=== PATIENT | female | born 1975 | race Caucasian/White ===

== ENCOUNTER 2020-08-19 17:33 | Outpatient (REF) | payer SELFPAY ==
--- NOTE | 2020-08-19 | MM_ITS ---
EXAMINATION: MM SCREENING DIGITAL BREAST TOMOSYNTHESIS, BILATERAL CLINICAL INFORMATION: Screening. Asymptomatic. No prior breast imaging. Age 45. No family history breast cancer. The lifetime risk of breast cancer based on the Tyrer-Cuzick Model is 8%. COMPARISON: None (current study represents initial baseline exam). TECHNIQUE: Digital breast tomosynthesis is performed in both the craniocaudal and mediolateral oblique views along with computer-aided detection (CAD). Synthesized 2D images are generated from the tomosynthesis. Additional right MLO view is provided. FINDINGS: The breasts are almost entirely fatty (ACR BI-RADS breast composition Category a). There is no mass or architectural abnormality. Background stromal densities are unremarkable. No abnormal calcifications. The axilla and skin contours are unremarkable. IMPRESSION: No mammographic evidence of malignancy. ASSESSMENT: BI-RADS 1: Negative RECOMMENDATION: Routine annual mammography screening. This patient's information was entered into a reminder system with a target due date for their next mammogram.
== END 2020-08-19 17:34 | disposition home or self-care (01) ==
LOC: HO.MAMMO 17:33
PROVIDERS: Visit Provider Internal Medicine
DX: Z12.31 Encounter for screening mammogram for malignant neoplasm of breast (principal)
CPT/HCPCS: 77063; 77067

== ENCOUNTER 2021-12-11 14:13 | Outpatient (REF) | payer OTHER, SELFPAY ==
--- NOTE | ~2021-12-11 | XR_ITS ---
EXAMINATION: XR THORACIC SPINE CLINICAL INFORMATION: Dorsalgia COMPARISON: None TECHNIQUE: 3 views of the thoracic spine were obtained. FINDINGS: There is normal thoracic kyphosis. The vertebral heights, alignment and disc heights are normal. No visible acute fracture, dislocation or subluxation seen. The paravertebral soft tissues are normal. There is mild spondylosis dorsal spine. No lytic process. XR/XR thoracic spine 3V IMPRESSION: Mild spondylosis dorsal spine. No visible acute fracture or dislocation seen.
== END 2021-12-11 14:14 | disposition home or self-care (01) ==
LOC: HO.HMGCX 14:13
PROVIDERS: PCP Internal Medicine; Visit Provider Internal Medicine
DX: M54.9 Dorsalgia, unspecified (principal)
CPT/HCPCS: 72072

== ENCOUNTER 2022-01-05 12:38 | Outpatient (REF) | payer OTHER, SELFPAY ==
[2022-01-08 09:01] LABS: HPV mRNA E6/E7 Not Detected (Not Detected)
== END 2022-01-05 12:39 | disposition home or self-care (01) ==
LOC: HO.LAB 12:38
PROVIDERS: Visit Provider Internal Medicine
DX: Z12.4 Encounter for screening for malignant neoplasm of cervix (principal); Z11.51 Encounter for screening for human papillomavirus (HPV)
CPT/HCPCS: 87624; 88142

== ENCOUNTER 2022-01-24 09:41 | Outpatient (REF) | payer OTHER, SELFPAY ==
--- NOTE | ~2022-01-24 | MM_ITS ---
EXAMINATION: MM SCREENING DIGITAL BREAST TOMOSYNTHESIS, BILATERAL CLINICAL INFORMATION: Screening. Asymptomatic. The lifetime risk of breast cancer based on the Tyrer-Cuzick Model is 7%. COMPARISON: Mammography: 08/19/2020 (baseline) TECHNIQUE: Digital breast tomosynthesis is performed in both the craniocaudal and mediolateral oblique views along with computer-aided detection (CAD). Synthesized 2D images are generated from the tomosynthesis. Additional bilateral MLO views are provided. FINDINGS: The breasts are almost entirely fatty (ACR BI-RADS breast composition Category a). There are no significant masses, abnormal calcifications, or other abnormalities. Background stromal and fibroglandular densities are similar to prior baseline exam. The axilla and skin contours are unremarkable. There are no significant changes. MM/MM tomosynthesis screening BI IMPRESSION: No mammographic evidence of malignancy. ASSESSMENT: BI-RADS 1: Negative RECOMMENDATION: Routine annual mammography screening. This patient's information was entered into a reminder system with a target due date for their next mammogram.
== END 2022-01-24 09:42 | disposition home or self-care (01) ==
LOC: HO.MAMMO 09:41
PROVIDERS: Visit Provider Internal Medicine
DX: Z12.31 Encounter for screening mammogram for malignant neoplasm of breast (principal)
CPT/HCPCS: 77063; 77067

== ENCOUNTER 2023-01-21 12:57 | Outpatient (REF) | payer OTHER, SELFPAY ==
[2023-01-21 13:48] LABS: MANUAL DIFF FLAG NO
[2023-01-21 14:05] LABS: Basophils Percent Auto 0.4 % (0-2); Eosinophils Absolute Auto 0.1 X10*3/uL (0.0-0.4); Eosinophils Percent Auto 1.3 % (0-4); Hematocrit 41.1 % (37.0-47.0); Hemoglobin 12.6 g/dl (12.0-16.0); Imm Gran Abs Auto 0.07 X10*3/uL (0.00-0.03); Imm Gran Pct Auto 0.6 % (0.0-0.4); Lymphocytes Absolute Auto 2.9 X10*3/uL (1.2-4.9); Lymphocytes Percent Auto 26.5 % (20-40); Mean Corpuscular HGB Conc 30.7 g/dl (31.0-35.0); Mean Corpuscular Volume 84.7 fL (80.0-98.0); Mean Platelet Volume 8.6 fL (9.4-12.3); Monocytes Absolute Auto 0.8 X10*3/uL (0.1-1.2); Neutrophils Percent Auto 64.2 % (45-73); Platelet Count 401 X10*3/uL (160-400); Red Blood Count 4.85 X10*6/uL (4.20-5.50); Red Cell Distribution Width 14.6 % (11.0-16.0)
[2023-01-21 14:47] LABS: Alanine Aminotransferase 15 U/L (0-31); Albumin Level 3.7 g/dL (3.5-5.0); Alkaline Phosphatase 96 U/L (39-117); Anion Gap 13 (12-20); Aspartate Amino Transferase 12 U/L (5-31); Bilirubin Total 0.7 mg/dL (0.0-1.0); Blood Urea Nitrogen 15 mg/dL (9-16); Calcium 9.1 mg/dL (8.4-10.2); Carbon Dioxide 29 mmol/L (22-29); Chloride 103 mmol/L (96-108); Cholesterol 226 mg/dL; Estimated Glomerular Filt Rate > 60; Glucose Fasting 103 mg/dL (60-99); HDL Cholesterol 52 mg/dL; LDL Cholesterol Calculated 141 mg/dl; Potassium 4.8 mmol/L (3.3-5.1); Sodium 140 mmol/L (135-145); Total Protein 6.9 g/dL (6.5-8.0); Triglycerides 167 mg/dL
[2023-01-21 14:49] LABS: TSH reflex Free T4 1.01 uIU/mL (0.32-4.0)
== END 2023-01-21 12:58 | disposition home or self-care (01) ==
LOC: HO.HMGCLDS 12:57
PROVIDERS: PCP Internal Medicine; Visit Provider Internal Medicine
DX: Z00.00 Encounter for general adult medical examination without abnormal findings (principal); R53.83 Other fatigue
CPT/HCPCS: 36415; 80053; 80061; 84443; 85025

== ENCOUNTER 2023-03-03 07:45 | Outpatient (REF) | payer OTHER, SELFPAY | END 2023-03-03 07:46 | disposition home or self-care (01) | LOC: HO.SH 07:45 | PROVIDERS: Visit Provider Internal Medicine | DX: Z01.118 Encounter for examination of ears and hearing with other abnormal findings (principal); H90.42 Sensorineural hearing loss, unilateral, left ear, with unrestricted hearing on the contralateral side | CPT/HCPCS: 92550; 92557; 92588; 92700 ==

== ENCOUNTER 2023-07-06 09:23 | Outpatient (AMB) | payer OTHER, SELFPAY ==
[2023-07-06 09:29] VITALS: BP 118/90; PULSE 95; BMI 46.3
--- NOTE | 2023-07-06 09:29 | A.OFFVIS_ITS ---
Intake Vital Signs 07/06/23 09:29 Height 5 ft 1 in Weight 245 lb 2.464 oz BMI 46.3 BP 118/90 H Blood Pressure Location Lt brachial Position Sitting Pulse 95 Intake Visit Reasons: NPV/Cichon/Chest pain Intake Note: NPV Assembler Skylights Required: No Accompanied by: Self / Same As Patient Allergies penicillin V Allergy (Unknown, Verified 07/06/23 09:31) hives migraine morphine Allergy (Verified 07/06/23 09:31) tremors baclofen Adverse Reaction (Verified 07/06/23 09:31) heart flaterring Medication List - Last Reconciled 07/06/23 by Federico Lopez MD propranolol 40 mg PO BID tirzepatide 7.5 mg subcut QWEEK venlafaxine ER 37.5 mg PO DAILY HPI HPI Comments History of Present Illness Details Carly is here for consultation regarding chest pains. She states for the last few months she has been having off and on chest pains in the left side. This sometimes feels like burning and sometimes feels like sharp pains. Just about the left breast area and can go to the back. Nothing clearly provoke it of and can happen with and without exertion. No known cardiac issues like coronary disease myocardial infarction. She is on the overweight side. Main concern is that multiple members in the family have had cardiac issues around this age and hence she wants to get herself evaluated in this regard. [facility] Medical History Annual physical exam Back pain Bipolar disorder with depression Migraine headache Normal Pap smear Obesity Overweight Surgical History Carpal tunnel syndrome Hx of cholecystectomy Family History Father Mental health disorder Substance use disorder Mother Mental health disorder Substance use disorder Uterine cancer Family/Other Diabetes mellitus Heart problem Paternal Aunt Leukemia Social History Housing: House Patient Tobacco Use Status: Never used Tobacco e-Cigarette/Vaping Use: Never Used Current occupational status: employed Cognitive needs: No Hearing needs: No Vision needs: No Review of Systems Const Denies chills, Denies daytime sleepiness, Denies fatigue, Denies fever(s), Denies frequent falls, Denies night sweats, Denies snoring, Denies weakness, Denies weight gain and Denies weight loss Eyes Denies loss of vision ENT Denies dizziness and Denies hearing loss Card Denies chest pain, Denies chest pain with activity, Denies syncope, Denies rapid heart rate, Denies edema, Denies claudication, Denies leg edema, Denies lightheadedness, Denies palpitations, Denies dyspnea, Denies dyspnea on exertion and Denies orthopnea Resp Denies cough, Denies excessive phlegm production, Denies dyspnea, Denies dyspnea on exertion, Denies snoring and Denies wheezing GI Denies abdominal pain, Denies hematochezia, Denies change in bowel habits, Denies change in stool character, Denies heartburn, Denies nausea and Denies vomiting Denies hematuria, Denies urinary frequency and Denies dysuria Musc Denies arthralgias, Denies muscle weakness, Denies numbness and Denies tingling Skin/Breast Denies nail changes and Denies rash Neuro Denies Abnormal speech present, Denies dizziness, Denies syncope, Denies frequent falls, Denies loss of vision, Denies memory loss, Denies numbness, Denies tingling and Denies weakness Psych Denies depression and Denies memory loss Endo Denies fatigue and Denies palpitations Aller/Immun Denies wheezing Physical Exam Vital Signs: Last Vital Signs Pulse 95 07/06/23 09:29 BP 118/90 H 07/06/23 09:29 BMI result Body Mass Index 46.3 Const General: comfortable and no acute distress Orientation/consciousness: patient oriented x3 HEENT Other: Unremarkable Head: Yes normal to inspection Neck Neck: Yes normal visual inspection Chest Chest palpation & inspection: normal inspection of the chest Resp Auscultation: clear to auscultation bilaterally Cardio Palpation: normal PMI Heart sounds: S1 normal heart sound present, S2 normal heart sound present, no gallops, no murmurs and no rubs GI Palpation (GI): Soft to palpation Back/Spine/Pelvis Other: unremarkable Skin General skin exam: no rashes or lesions noted Neuro General: patient oriented x3 Speech: No Abnormal speech present Extrem General: Yes normal to inspection Psych Mental Status: mental status grossly normal Assessment & Plan Assessment & Plan (1) Precordial chest pain: Code(s): R07.2 - Precordial pain Plan In the recent EKG, underlying rhythm is sinus at 78/Min; cannot exclude old inferior or anterior infarct but more likely from her body habitus. Symptoms are atypical but she does have a strong family history with multiple family members with cardiac issues at relatively young age. Hence we will pursue further workup with an echocardiogram and coronary CTA. Her weight also predisposes her to cardiac issues. Plan discussed with patient and she is agreeable. While workup is being completed, advised to avoid any strenuous physical activity. Orders: Orders CA echo transthoracic complete Today I25.10 - Atherosclerotic heart disease of [place] coronary artery without angina pectoris, R07.2 - Precordial pain CT Cardiac Coronary Angio Today I25.10 - Atherosclerotic heart disease of [place] coronary artery without angina pectoris, R07.2 - Precordial pain Coding Level of Care Code New Pt Level 4 (50205) Diagnoses Precordial chest pain R07.2
== END 2023-07-06 09:54 | disposition home or self-care (01) ==
PROVIDERS: PCP Internal Medicine; Referring Provider Internal Medicine; Visit Provider Internal Medicine
DX: R07.2 Precordial pain (principal)
CPT/HCPCS: 99204

== ENCOUNTER → 2023-07-06 09:23 | Outpatient (BNVA) | payer OTHER, SELFPAY | PROVIDERS: PCP Internal Medicine; Referring Provider Internal Medicine; Visit Provider Internal Medicine ==

== ENCOUNTER 2024-03-04 06:58 | Outpatient (REF) | payer OTHER, SELFPAY ==
[2024-03-04 11:10] LABS: MANUAL DIFF FLAG NO
[2024-03-04 11:16] LABS: Basophils Absolute Auto 0.1 X10*3/uL (0.0-0.2); Basophils Percent Auto 0.6 % (0-2); Eosinophils Absolute Auto 0.2 X10*3/uL (0.0-0.4); Eosinophils Percent Auto 2.4 % (0-4); Hematocrit 41.8 % (37.0-47.0); Hemoglobin 12.8 g/dl (12.0-16.0); Imm Gran Abs Auto 0.05 X10*3/uL (0.00-0.03); Imm Gran Pct Auto 0.6 % (0.0-0.4); Lymphocytes Absolute Auto 2.7 X10*3/uL (1.2-4.9); Lymphocytes Percent Auto 31.9 % (20-40); Mean Corpuscular HGB Conc 30.6 g/dl (31.0-35.0); Mean Corpuscular Hemoglobin 26.5 pg (27.0-33.0); Mean Corpuscular Volume 86.5 fL (80.0-98.0); Mean Platelet Volume 8.9 fL (9.4-12.3); Monocytes Absolute Auto 0.7 X10*3/uL (0.1-1.2); Monocytes Percent Auto 8.2 % (2-11); Neutrophils Absolute Auto 4.8 x10*3/uL (2.0-8.3); Neutrophils Percent Auto 56.3 % (45-73); Platelet Count 387 X10*3/uL (160-400); Red Blood Count 4.83 X10*6/uL (4.20-5.50); Red Cell Distribution Width 14.4 % (11.0-16.0); White Blood Count 8.6 X10*3/uL (4.8-10.8)
[2024-03-04 12:14] LABS: Alanine Aminotransferase 34 U/L (0-31); Albumin Level 3.9 g/dL (3.5-5.0); Alkaline Phosphatase 96 U/L (39-117); Anion Gap 12 (12-20); Aspartate Amino Transferase 21 U/L (5-31); Bilirubin Total 0.5 mg/dL (0.0-1.0); Blood Urea Nitrogen 16 mg/dL (9-16); Carbon Dioxide 28 mmol/L (22-29); Chloride 106 mmol/L (96-108); Cholesterol 214 mg/dL (<200); Estimated Glomerular Filt Rate > 60; Glucose Fasting 94 mg/dL (60-99); HDL Cholesterol 55 mg/dL (>40); LDL Cholesterol Calculated 132 mg/dL (<100); Potassium 4.3 mmol/L (3.3-5.1); Sodium 142 mmol/L (135-145); Total Protein 7.4 g/dL (6.5-8.0); Triglycerides 139 mg/dL (<150)
[2024-03-04 12:29] LABS: TSH reflex Free T4 1.83 uIU/mL (0.32-4.0)
== END 2024-03-04 06:59 | disposition home or self-care (01) ==
LOC: HO.HMGCLDS 06:58
PROVIDERS: PCP Internal Medicine; Visit Provider Internal Medicine
DX: Z00.00 Encounter for general adult medical examination without abnormal findings (principal); E66.9 Obesity, unspecified; E78.5 Hyperlipidemia, unspecified; F31.9 Bipolar disorder, unspecified
CPT/HCPCS: 36415; 80053; 80061; 84443; 85025

== ENCOUNTER 2024-03-06 10:23 | Outpatient (AMB) | payer OTHER, SELFPAY ==
[2024-03-06 10:26] VITALS: BP 112/78; PULSE 72; O2SAT 98; BMI 43.1
--- NOTE | 2024-03-06 10:26 | MHC.PC.OV ---
Vital Signs 03/06/24 10:26 Height 5 ft 1 in Weight 228 lb BMI 43.1 BP 112/78 Blood Pressure Location Rt brachial Position Sitting Pulse 72 Pulse Source Pulse Oximeter Pulse Oximetry (%) 98 Oxygen Delivery Method Room Air Intake Visit Reasons: Annual PE Intake Note: Pt is here today for PE. Allergies penicillin V Allergy (Unknown, Verified 03/06/24 10:45) hives migraine morphine Allergy (Verified 03/06/24 10:45) tremors baclofen Adverse Reaction (Verified 03/06/24 10:45) heart flaterring Medication List - Last Reconciled 03/06/24 by Isabel Mcelroy MD propranolol 40 mg PO BID venlafaxine ER 37.5 mg PO DAILY Tobacco use date assessed: 03/06/24 Dental Screening Dental Screen Date: 03/06/24 Did you have a dental visit in the last 12 months?: Yes Did you have a dental problem in the last 6 months where you did not have access to dental care?: No Was dental information given to patient?: Patient has dentist HPI Annual PE HPI Details Pt presents for PE. PFSH Medical History Back pain Annual physical exam Obesity Normal Pap smear Overweight Bipolar disorder with depression Migraine headache Surgical History Carpal tunnel syndrome Hx of cholecystectomy Family History Father Mental health disorder Substance use disorder Mother Mental health disorder Substance use disorder Uterine cancer Family/Other Diabetes mellitus Heart problem Paternal Aunt Leukemia Social History Housing: House Patient Tobacco Use Status: Never used Tobacco e-Cigarette/Vaping Use: Never Used service: No Current occupational status: employed Cognitive needs: No Hearing needs: No Vision needs: No Questionnaire PHQ-9 Over the last 2 weeks, how often have you been bothered by any of the following problems? 1. Little interest or pleasure in doing things: several days 2. Feeling down, depressed, or hopeless: several days 3. Trouble falling or staying asleep, or sleeping too much: several days 4. Feeling tired or having little energy: several days 5. Poor appetite or overeating: not at all 6. Feeling bad about yourself - or that you are a failure or have let yourself or your family down: not at all 7. Trouble concentrating on things, such as reading the newspaper or watching television: several days 8. Moving or speaking so slowly that other people could have noticed. Or the opposite - being so fidgety or restless that you have been moving around a lot more than usual: not at all 9. Thoughts that you would be better off or of hurting yourself in some way: not at all Total score: 5 Depression Screening Interpretation: Negative Depression Screening Done: Yes Source: Developed by Drs. Tyler Aranda, Herlinda Mcclelland, Adarsh Be and colleagues, with an educational aury from [employer]. Thrive Questionnaire Date Thrive assessed: 03/05/23 I am a: Patient What is your living situation today?: I have a steady place to live Within the past 12 months, did the food you bought not last and you didn't have the money to get more?: I choose not to answer this question Within the past 12 months, did you worry whether your food would run out before you got money to buy more?: Sometimes True Do you have trouble paying for medicines?: No Do you have trouble getting transportation to medical appointments?: No Do you have trouble paying your heating and electricity bill?: Yes Do you have trouble taking care of your child, family member or friend?: No Do you have trouble with day-to-day activities such as bathing, preparing meals, shopping, managing finances, etc.?: No Are you currently unemployed and looking for a job?: No Are you interested in more education?: No Please select the resources that you would like help with: Utilities THRIVE Score: 2 AUDIT C Alcohol Use Questionnaire (AUDIT-C) 1. How often do you have a drink containing alcohol?: Monthly or less 2. How many drinks containing alcohol do you have on a typical day when you are drinking?: 1 or 2 3. How often do you have six or more drinks on one occasion?: Never Total Score: 1 JOSUE-7 AMB Questionnaire JOSUE-7 Date JOSUE - 7 assessed: 03/05/23 Feeling nervous, anxious, or on edge: 0 = Not at all Not being able to stop or control worryin = Not at all Worrying too much about different things: 0 = Not at all Trouble relaxin = Not at all Being so restless that it is hard to sit still: 0 = Not at all Becoming easily annoyed or irritable: 1 = Several days Feeling afraid as if something awful might happen: 0 = Not at all Total JOSUE-7 score (0-4 normal; 5-9 mild; 10-14 moderate; 15-21 severe): 1 Source: Developed by Drs. Tyler Aranda, Herlinda Mcclelland, Adarsh Be and colleagues, with an educational aury from [employer]. Review of Systems Const All systems reviewed & are unremarkable except as noted in HPI and below Reports no additional complaints Eyes Reports no additional complaints ENT Reports no additional complaints Card Reports no additional complaints Resp Reports no additional complaints GI Reports no additional complaints Reports no additional complaints Physical exam (Primary Care) Vital Signs: Last Vital Signs Pulse 72 03/06/24 10:26 BP 112/78 03/06/24 10:26 Pulse Ox 98 03/06/24 10:26 Oxygen Delivery Method Room Air 03/06/24 10:26 BMI result Body Mass Index 43.1 Tobacco/Smoking Status: Tobacco use Status Tobacco use date assessed 03/06/24 03/06/24 10:48 Patient Tobacco Use Status Never used Tobacco 03/06/24 10:48 e-Cigarette/Vaping Use Never Used 03/06/24 10:26 PHQ-9: PHQ-9 Score PHQ-9: Total score 5 03/06/24 10:48 Depression Screening Interpretation: Negative Thrive Assessment: Date of Thrive Assessment Date Thrive assessed 03/05/23 03/06/24 10:26 Const General: no acute distress HENMT Head: Yes normal to inspection Ears: hearing grossly normal bilaterally Face and sinus: Yes normal facial exam Throat: Yes posterior oropharynx normal Eyes General: appearance normal, both eyes and all related structures Neck Neck: Yes no lymphadenopathy and Yes supple Resp Effort & Inspection: normal respiratory effort Auscultation: clear to auscultation bilaterally Cardio Rhythm: regular rhythm Heart sounds: S1 normal heart sound present and S2 normal heart sound present GI Inspection: Yes normal to inspection Palpation (GI): Soft to palpation Percussion: Yes normal to percussion Auscultation: normal bowel sounds Assessment and Plan Assessment & Plan (1) Bipolar disorder with depression: Comment: follows up with therapist and psychiatrist Code(s): F31.9 - Bipolar disorder, unspecified Plan: cont Effexor (2) Annual physical exam: Code(s): Z00.00 - Encounter for general adult medical examination without abnormal findings Plan: well balanced diet, regular exercise, weight loss discussed, refer to GI for colonoscopy, patient will schedule an appointment for mammogram and assistant to the ceo (3) Obesity: Code(s): E66.9 - Obesity, unspecified Plan: weight loss discussed (4) Normal Pap smear: Comment: 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 Panel Fast 1 Year E78.5 - Hyperlipidemia, unspecified, Z00.00 - Encounter for general adult medical examination without abnormal findings Lipid Panel 1 Year E78.5 - Hyperlipidemia, unspecified, Z00.00 - Encounter for general adult medical examination without abnormal findings Complete Blood Count Auto Diff 1 Year E78.5 - Hyperlipidemia, unspecified, Z00.00 - Encounter for general adult medical examination without abnormal findings Referrals Gastroenterology Referral Z00.00 - Encounter for general adult medical examination without abnormal findings Coding Level of Care Code Est Pt Prev Care 40-64y(34863) Diagnoses Bipolar disorder with depression F31.9 Annual physical exam Z00.00 Obesity E66.9 Normal Pap smear Z12.4 Right shoulder pain M25.511 Hyperlipidemia E78.5
== END 2024-03-06 11:15 | disposition home or self-care (01) ==
PROVIDERS: Visit Provider Internal Medicine
DX: Z00.00 Encounter for general adult medical examination without abnormal findings (principal); F31.9 Bipolar disorder, unspecified; Z68.41 Body mass index [BMI] 40.0-44.9, adult; E66.9 Obesity, unspecified; M25.511 Pain in right shoulder; E78.5 Hyperlipidemia, unspecified
CPT/HCPCS: 99396

== ENCOUNTER 2024-07-14 11:55 | Outpatient (AMB) | payer OTHER, SELFPAY ==
[2024-07-14 12:04] VITALS: BP 118/74; PULSE 93; O2SAT 95; BMI 45.7
--- NOTE | 2024-07-14 12:04 | A.OFFPC_ITS ---
Vital Signs 07/14/24 12:04 Height 5 ft 1 in Weight 242 lb BMI 45.7 BP 118/74 Blood Pressure Location Lt brachial Position Sitting Pulse 93 Pulse Source Pulse Oximeter Pulse Oximetry (%) 95 Oxygen Delivery Method Room Air Intake Visit Reasons: Weight loss struggle Intake Note: Pt is here today for a follow up visit to discuss weight loss issue. Allergies penicillin V Allergy (Unknown, Verified 07/14/24 12:08) hives migraine morphine Allergy (Verified 07/14/24 12:08) tremors baclofen Adverse Reaction (Verified 07/14/24 12:08) heart flaterring Medication List - Last Reconciled 07/14/24 by Isabel Mcelroy MD propranolol 40 mg (1/2 x 80 mg) PO BID sumatriptan succinate take 1 tab at onset of headache; if no relief, may repeat 1 tab after at least 2 hrs; max = 2 tabs/24 hrs PO venlafaxine ER 37.5 mg PO DAILY Tobacco use date assessed: 07/14/24 Dental Screening Dental Screen Date: 03/06/24 HPI Weight loss struggle HPI Details Patient presents complaining of gaining weight despite of decreasing caloric intake and exercising 5 times a week. She used to take Mounjaro prescribed by weight management program which went out of business. Patient was able to lose 30 lb of Mounjaro. [facility] Medical History Back pain Annual physical exam Obesity Normal Pap smear Overweight Bipolar disorder with depression Migraine headache Surgical History Carpal tunnel syndrome Hx of cholecystectomy Family History Father Mental health disorder Substance use disorder Mother Mental health disorder Substance use disorder Uterine cancer Family/Other Diabetes mellitus Heart problem Paternal Aunt Leukemia Social History Housing: House Patient Tobacco Use Status: Never used Tobacco e-Cigarette/Vaping Use: Never Used service: No Current occupational status: employed Cognitive needs: No Hearing needs: No Vision needs: No Questionnaire Thrive Questionnaire Date Thrive assessed: 07/07/24 I am a: Patient What is your living situation today?: I have a steady place to live Within the past 12 months, did the food you bought not last and you didn't have the money to get more?: Never true Within the past 12 months, did you worry whether your food would run out before you got money to buy more?: Never true Do you have trouble paying for medicines?: Yes Do you have trouble getting transportation to medical appointments?: No Do you have trouble paying your heating and electricity bill?: Yes Do you have trouble taking care of your child, family member or friend?: No Do you have trouble with day-to-day activities such as bathing, preparing meals, shopping, managing finances, etc.?: No Are you currently unemployed and looking for a job?: No Are you interested in more education?: No Currently or been in a relationship where the following occur: No concerns reported THRIVE Score: 1 AUDIT C Alcohol Use Questionnaire (AUDIT-C) 1. How often do you have a drink containing alcohol?: Monthly or less 2. How many drinks containing alcohol do you have on a typical day when you are drinking?: 1 or 2 3. How often do you have six or more drinks on one occasion?: Never Total Score: 1 JOSUE-7 AMB Questionnaire JOSUE-7 Date JOSUE - 7 assessed: 03/05/23 Feeling nervous, anxious, or on edge: 0 = Not at all Not being able to stop or control worryin = Not at all Worrying too much about different things: 0 = Not at all Trouble relaxin = Not at all Being so restless that it is hard to sit still: 0 = Not at all Becoming easily annoyed or irritable: 1 = Several days Feeling afraid as if something awful might happen: 0 = Not at all Total JOSUE-7 score (0-4 normal; 5-9 mild; 10-14 moderate; 15-21 severe): 1 Source: Developed by Drs. Tyler Aranda, Herlinda Mcclelland, Adarsh Be and colleagues, with an educational aury from [employer]. Review of Systems Const All systems reviewed & are unremarkable except as noted in HPI and below Card Reports no additional complaints Resp Reports no additional complaints GI Reports no additional complaints Physical exam (Primary Care) Vital Signs: Last Vital Signs Pulse 93 07/14/24 12:04 BP 118/74 07/14/24 12:04 Pulse Ox 95 07/14/24 12:04 Oxygen Delivery Method Room Air 07/14/24 12:04 BMI result Body Mass Index 45.7 Tobacco/Smoking Status: Tobacco use Status Tobacco use date assessed 07/14/24 07/14/24 12:09 Patient Tobacco Use Status Never used Tobacco 07/14/24 12:09 e-Cigarette/Vaping Use Never Used 07/14/24 12:09 Thrive Assessment: Date of Thrive Assessment Date Thrive assessed 07/07/24 07/14/24 12:09 Currently or been in a relationship where the following occur: No concerns reported Const General: no acute distress HENMT Head: Yes normal to inspection General nose exam: Normal external nose present Throat: Yes posterior oropharynx normal Eyes General: appearance normal, both eyes and all related structures Neck Neck: Yes supple Resp Effort & Inspection: normal respiratory effort Auscultation: clear to auscultation bilaterally Cardio Rhythm: regular rhythm Heart sounds: S1 normal heart sound present and S2 normal heart sound present Assessment and Plan Assessment & Plan (1) Obesity: Comment: BMI 45.7 Code(s): E66.9 - Obesity, unspecified Plan: CONTINUE DECREASE CALORIC INTAKE WITH THE PHYSICAL ACTIVITY. Zepbound 2.5 mg for the 1st month then increase to 5 mg weekly will be started. Follow-up in 2 months to monitor weight loss Medications: New Zepbound (tirzepatide (weight loss)) 2.5 mg (0.5 mL) subcut QWEEK 2 mL 2RF NS Coding Level of Care Code Est Pt Level 3 (39780) Diagnoses Obesity E66.9
== END 2024-07-14 12:46 | disposition home or self-care (01) ==
LOC: HO.HMGC 11:55
PROVIDERS: PCP Internal Medicine; Visit Provider Internal Medicine
DX: E66.01 Morbid (severe) obesity due to excess calories (principal); Z68.42 Body mass index [BMI] 45.0-49.9, adult
CPT/HCPCS: 99213

== ENCOUNTER 2025-04-06 08:32 | Outpatient (REF) | payer OTHER, SELFPAY ==
[2025-04-06 10:12] LABS: MANUAL DIFF FLAG NO
[2025-04-06 10:26] LABS: Basophils Absolute Auto 0.1 X10*3/uL (0.0-0.2); Basophils Percent Auto 0.6 % (0-2); Eosinophils Absolute Auto 0.2 X10*3/uL (0.0-0.4); Eosinophils Percent Auto 1.9 % (0-4); Hematocrit 39.5 % (37.0-47.0); Hemoglobin 12.7 g/dl (12.0-16.0); Imm Gran Abs Auto 0.06 X10*3/uL (0.00-0.03); Imm Gran Pct Auto 0.7 % (0.0-0.4); Lymphocytes Absolute Auto 2.2 X10*3/uL (1.2-4.9); Lymphocytes Percent Auto 25.8 % (20-40); Mean Corpuscular HGB Conc 32.2 g/dl (31.0-35.0); Mean Corpuscular Hemoglobin 27.7 pg (27.0-33.0); Mean Corpuscular Volume 86.2 fL (80.0-98.0); Mean Platelet Volume 8.6 fL (9.4-12.3); Monocytes Absolute Auto 0.7 X10*3/uL (0.1-1.2); Monocytes Percent Auto 8.2 % (2-11); Neutrophils Absolute Auto 5.3 x10*3/uL (2.0-8.3); Neutrophils Percent Auto 62.8 % (45-73); Platelet Count 299 X10*3/uL (160-400); Red Blood Count 4.58 X10*6/uL (4.20-5.50); Red Cell Distribution Width 13.6 % (11.0-16.0); White Blood Count 8.5 X10*3/uL (4.8-10.8)
[2025-04-06 13:00] LABS: TSH reflex Free T4 2.08 uIU/mL (0.32-4.0)
[2025-04-06 13:02] LABS: Anion Gap 10 (12-20)
[2025-04-06 13:06] LABS: Alanine Aminotransferase 20 U/L (0-31); Alkaline Phosphatase 91 U/L (39-117); Aspartate Amino Transferase 20 U/L (5-31); Bilirubin Total 0.6 mg/dL (0.0-1.0); Blood Urea Nitrogen 14 mg/dL (9-16); Calcium 9.2 mg/dL (8.4-10.2); Carbon Dioxide 30 mmol/L (22-29); Chloride 106 mmol/L (96-108); Cholesterol 201 mg/dL (<200); Estimated Glomerular Filt Rate > 60; Glucose Fasting 99 mg/dL (60-99); HDL Cholesterol 53 mg/dL (>40); LDL Cholesterol Calculated 116 mg/dL (<100); Potassium 4.5 mmol/L (3.3-5.1); Sodium 141 mmol/L (135-145); Total Protein 7.2 g/dL (6.5-8.0); Triglycerides 162 mg/dL (<150)
== END 2025-04-06 08:33 | disposition home or self-care (01) ==
LOC: HO.HMGCLDS 08:32
PROVIDERS: PCP Internal Medicine; Visit Provider Internal Medicine
DX: Z00.00 Encounter for general adult medical examination without abnormal findings (principal); E78.5 Hyperlipidemia, unspecified; F31.9 Bipolar disorder, unspecified; G43.909 Migraine, unspecified, not intractable, without status migrainosus; E66.9 Obesity, unspecified; Z68.42 Body mass index [BMI] 45.0-49.9, adult
CPT/HCPCS: 36415; 80053; 80061; 84443; 85025; 96127

== ENCOUNTER 2025-04-06 08:32 | Outpatient (AMB) | payer OTHER, SELFPAY ==
--- NOTE | 2025-04-06 08:34 | MHC.PC.OV ---
Vital Signs 04/06/25 08:35 Height 5 ft 1 in Weight 255 lb BMI 48.2 BP 120/82 Blood Pressure Location Lt brachial Position Sitting Respiration 18 Pulse 95 Pulse Source Pulse Oximeter Temp 98.0 F Temp Source Oral Pulse Oximetry (%) 97 Oxygen Delivery Method Room Air Intake Visit Reasons: Annual PE Intake Note: Pt is here today for PE. Allergies penicillin V Allergy (Unknown, Verified 04/06/25 08:36) hives migraine morphine Allergy (Verified 04/06/25 08:36) tremors baclofen Adverse Reaction (Verified 04/06/25 08:36) heart flaterring Medication List - Last Reconciled 04/06/25 by Isabel Mcelroy MD propranolol 40 mg (1/2 x 80 mg) PO BID sumatriptan succinate take 1 tab at onset of headache; if no relief, may repeat 1 tab after at least 2 hrs; max = 2 tabs/24 hrs PO venlafaxine ER 37.5 mg PO DAILY Tobacco use date assessed: 04/06/25 Dental Screening Dental Screen Date: 04/06/25 Did you have a dental visit in the last 12 months?: Yes Did you have a dental problem in the last 6 months where you did not have access to dental care?: No Was dental information given to patient?: Patient has dentist HPI Annual PE HPI Details Pt presents for PE. Patient has been decreasing caloric intake increasing physical activity for 9 months trying to lose weight unsuccessfully. She is interested in trying GLP 1 agonist to facilitate weight loss PFSH Medical History Back pain Annual physical exam Obesity Normal Pap smear Overweight Bipolar disorder with depression Migraine headache Surgical History Carpal tunnel syndrome Hx of cholecystectomy Family History Father Mental health disorder Substance use disorder Mother Mental health disorder Substance use disorder Uterine cancer Family/Other Diabetes mellitus Heart problem Paternal Aunt Leukemia Social History Housing: House Patient Tobacco Use Status: Never used Tobacco e-Cigarette/Vaping Use: Never Used service: No Current occupational status: employed Cognitive needs: No Hearing needs: No Vision needs: No Questionnaire PHQ-9 Over the last 2 weeks, how often have you been bothered by any of the following problems? 1. Little interest or pleasure in doing things: not at all 2. Feeling down, depressed, or hopeless: not at all 3. Trouble falling or staying asleep, or sleeping too much: not at all 4. Feeling tired or having little energy: several days 5. Poor appetite or overeating: nearly every day 6. Feeling bad about yourself - or that you are a failure or have let yourself or your family down: not at all 7. Trouble concentrating on things, such as reading the newspaper or watching television: several days 8. Moving or speaking so slowly that other people could have noticed. Or the opposite - being so fidgety or restless that you have been moving around a lot more than usual: not at all 9. Thoughts that you would be better off or of hurting yourself in some way: not at all Total score: 5 Depression Screening Interpretation: Negative Depression Screening Done: Yes 22034 - PHQ-9 Billing: Yes Source: Developed by Drs. Tyler Aranda, Herlinda Mcclelland, Adarsh Be and colleagues, with an educational aury from [employer] [facility]. Thrive Questionnaire Date Thrive assessed: 04/06/25 I am a: Patient What is your living situation today?: I have a steady place to live Within the past 12 months, did the food you bought not last and you didn't have the money to get more?: Never true Within the past 12 months, did you worry whether your food would run out before you got money to buy more?: Never true Do you have trouble paying for medicines?: Yes Do you have trouble getting transportation to medical appointments?: No Do you have trouble paying your heating and electricity bill?: Yes Do you have trouble taking care of your child, family member or friend?: No Do you have trouble with day-to-day activities such as bathing, preparing meals, shopping, managing finances, etc.?: No Are you currently unemployed and looking for a job?: No Are you interested in more education?: No Please select the resources that you would like help with: Paying for medicine and Utilities Currently or been in a relationship where the following occur: No concerns reported THRIVE Score: 1 AUDIT C Alcohol Use Questionnaire (AUDIT-C) 1. How often do you have a drink containing alcohol?: Monthly or less 2. How many drinks containing alcohol do you have on a typical day when you are drinking?: 1 or 2 3. How often do you have six or more drinks on one occasion?: Never Total Score: 1 JOSUE-7 AMB Questionnaire JOSUE-7 Date JOSUE - 7 assessed: 04/06/25 Feeling nervous, anxious, or on edge: 0 = Not at all Not being able to stop or control worryin = Not at all Worrying too much about different things: 0 = Not at all Trouble relaxin = Not at all Being so restless that it is hard to sit still: 0 = Not at all Becoming easily annoyed or irritable: 1 = Several days Feeling afraid as if something awful might happen: 0 = Not at all Total JOSUE-7 score (0-4 normal; 5-9 mild; 10-14 moderate; 15-21 severe): 1 Source: Developed by Drs. Tyler Aranda, Herlinda Mcclelland, Adarsh Be and colleagues, with an educational aury from [employer]. JOSUE-7 Assessment Billing JOSUE-7 Assessment Tool: JOSUE-7 Assessment 53404 Review of Systems Const All systems reviewed & are unremarkable except as noted in HPI and below Reports no additional complaints Eyes Reports no additional complaints ENT Reports no additional complaints Card Reports no additional complaints Resp Reports no additional complaints GI Reports no additional complaints Reports no additional complaints Physical exam (Primary Care) Vital Signs: Last Vital Signs Temp 98.0 F 04/06/25 08:35 Pulse 95 04/06/25 08:35 Resp 18 04/06/25 08:35 BP 120/82 04/06/25 08:35 Pulse Ox 97 04/06/25 08:35 Oxygen Delivery Method Room Air 04/06/25 08:35 BMI result Body Mass Index 48.2 Tobacco/Smoking Status: Tobacco use Status Tobacco use date assessed 04/06/25 04/06/25 08:40 Patient Tobacco Use Status Never used Tobacco 04/06/25 08:40 e-Cigarette/Vaping Use Never Used 04/06/25 08:40 PHQ-9: PHQ-9 Score PHQ-9: Total score 5 04/06/25 08:40 Depression Screening Interpretation: Negative Thrive Assessment: Date of Thrive Assessment Date Thrive assessed 04/06/25 04/06/25 08:40 Currently or been in a relationship where the following occur: No concerns reported Const General: no acute distress HENMT Head: Yes normal to inspection Ears: hearing grossly normal bilaterally Face and sinus: Yes normal facial exam Mouth: Normal oral and palatal mucosa present Throat: Yes posterior oropharynx normal Eyes General: appearance normal, both eyes and all related structures Neck Neck: Yes no lymphadenopathy and Yes supple Resp Effort & Inspection: normal respiratory effort Auscultation: clear to auscultation bilaterally Cardio Rhythm: regular rhythm Heart sounds: S1 normal heart sound present and S2 normal heart sound present GI Inspection: Yes normal to inspection Palpation (GI): Soft to palpation Percussion: Yes normal to percussion Auscultation: normal bowel sounds Coding Level of Care Code Est Pt Prev Care 40-64y(03737) Diagnoses Hyperlipidemia E78.5 Bipolar disorder with depression F31.9 Annual physical exam Z00.00 Migraine headache G43.909 Obesity E66.9 Additional Codes JOSUE-7 Assessment Billing - JOSUE-7 Assessment Tool: JOSUE-7 Assessment 25049 ([id number]) PHQ-9 - 37732 - PHQ-9 Billing: Yes ([id number]) Assessment & Plan Assessment & Plan (1) Hyperlipidemia: Code(s): E78.5 - Hyperlipidemia, unspecified Category: Medical Plan: Continue low-cholesterol diet increase physical activity weight loss discussed with the patient (2) Bipolar disorder with depression: Comment: follows up with therapist and psychiatrist Code(s): F31.9 - Bipolar disorder, unspecified Category: Medical Plan: f/u with psychiatry (3) Annual physical exam: Code(s): Z00.00 - Encounter for general adult medical examination without abnormal findings Category: Medical Plan: well balanced diet, regular exercise weight loss discussed with the patient. (4) Migraine headache: Comment: on Propranolol Code(s): G43.909 - Migraine, unspecified, not intractable, without status migrainosus Category: Medical Plan: cont Imitrex (5) Obesity: Comment: BMI 45.7 Code(s): E66.9 - Obesity, unspecified Category: Medical Plan: Continue decreasing caloric intake increasing physical activity patient will try Zepbound 2.5 mg weekly and if covered by insurance she will follow-up in 3 months Orders: Orders Complete Blood Count Auto Diff 1 Year E78.5 - Hyperlipidemia, unspecified, Z00.00 - Encounter for general adult medical examination without abnormal findings Lipid Panel 1 Year E78.5 - Hyperlipidemia, unspecified, Z00.00 - Encounter for general adult medical examination without abnormal findings Vitamin D 25-OH Total 1 Year E78.5 - Hyperlipidemia, unspecified, Z00.00 - Encounter for general adult medical examination without abnormal findings Comprehensive [place]. Panel Fast 1 Year E78.5 - Hyperlipidemia, unspecified, Z00.00 - Encounter for general adult medical examination without abnormal findings TSH reflex Free T4 1 Year E78.5 - Hyperlipidemia, unspecified, Z00.00 - Encounter for general adult medical examination without abnormal findings Referrals Cologuard Test Z12.11 - Encounter for screening for malignant neoplasm of colon, Z12.12 - Encounter for screening for malignant neoplasm of rectum Medications: New Zepbound (tirzepatide (weight loss)) 2.5 mg (0.5 mL) subcut QWEEK 2 mL 1RF NS Refilled sumatriptan succinate take 1 tab at onset of headache; if no relief, may repeat 1 tab after at least 2 hrs; max = 2 tabs/24 hrs PO 10 tabs 2RF propranolol 40 mg (1/2 x 80 mg) PO BID 180 tabs 3RF
[2025-04-06 08:35] VITALS: BP 120/82; PULSE 95; RESP 18; TEMP 36.7; O2SAT 97; BMI 48.2
--- OUTSIDE RECORDS SUMMARY | 2025-04-06 08:43 | XMS_ITS | Patient Health Record ---
Author Organization [facility] Address [address] [place] [address] Care Team Providers Care Home Service Director Name Role Phone FARHAD HAWTHORNE Unavailable [phone] Allergies Allergen (clinical drug ingredient) Drug/Non Drug Allergy documented on EMR Reaction Allergy Type Onset Date Status morphine Morphine Unknown Drug Allergy Active Penicillin Unknown Drug Allergy Active Reason For Referral No Information Medications Medication SIG (Take, Route, Frequency, Duration) Notes Start Date End Date Status Propranolol HCl 80 MG Oral for 30 Active SUMAtriptan Succinate 25 MG Oral for 30 Active Mounjaro 7.5 MG/0.5ML 7.5 MG Subcutaneou s WEEKLY for 30 days 06/02/2023 Active Venlafaxine HCl ER 37.5 MG Oral for 30 Active Social History Tobacco Use: Social History Observation Description Date Details (start date - stop date) Never Smoker NA - NA Tobacco Use/Smoking Question Answer Notes Are you a nonsmoker Alcohol Screen (Audit-C) Question Answer Notes Did you have a drink contain ing alcohol in the past year? Yes How often did you have a dri nk containing alcohol in the past year? Monthly or less (1 point) Points 1 Interpretation Negative Problems Problem Type SNOMED Code ICD Code Onset Dates Problem Status W/U Status Risk Notes Problem [id number] BMI 40.0-44.9, adult (Z68.41) Active confirmed Problem [id number] BMI 45.0-49.9, adult (Z68.42) Active confirmed Problem [id number] Morbid obesity due to excess calories (E66.01) Active confirmed Plan Of Treatment No Information Insurance Providers Payer Name Payer Address Payer Phone Subscriber Number Group Number Insured Name Patient Relationship to Insured Coverage Start Date Coverage End Date [employer] [address] [place] [address] [phone] [id number] Carly Villa Self - patient is the insured 9 Medical (General) History Medical History History ICD Code bipolar disorder migraine headaches anxiety depression Surgical History Surgery Date(Month/Year) cholecystectomy section
== END 2025-04-06 10:24 | disposition home or self-care (01) ==
LOC: HO.HMCC 08:33
PROVIDERS: PCP Internal Medicine; Visit Provider Internal Medicine
DX: Z00.00 Encounter for general adult medical examination without abnormal findings (principal); F31.9 Bipolar disorder, unspecified; Z68.42 Body mass index [BMI] 45.0-49.9, adult; E66.9 Obesity, unspecified; E78.5 Hyperlipidemia, unspecified; G43.909 Migraine, unspecified, not intractable, without status migrainosus

== ENCOUNTER 2025-08-17 13:23 | Outpatient (AMB) | payer OTHER, SELFPAY ==
--- NOTE | 2025-08-17 13:24 | A.OFFPC_ITS ---
Vital Signs 08/17/25 13:32 Height 5 ft 1 in Weight 246 lb BMI 46.5 BP 110/76 Blood Pressure Location Lt brachial Position Sitting Respiration 18 Pulse 95 Pulse Source Pulse Oximeter Temp 98.4 F Temp Source Oral Pulse Oximetry (%) 99 Oxygen Delivery Method Room Air Intake Visit Reasons: Concern on Zepbound Intake Note: Pt is here today for a follow up visit on weight med. Allergies penicillin V Allergy (Unknown, Verified 08/17/25 13:35) hives migraine morphine Allergy (Verified 08/17/25 13:35) tremors baclofen Adverse Reaction (Verified 08/17/25 13:35) heart flaterring Medication List - Last Reconciled 08/17/25 by Isabel Mcelroy MD propranolol 40 mg (1/2 x 80 mg) PO BID sumatriptan succinate take 1 tab at onset of headache; if no relief, may repeat 1 tab after at least 2 hrs; max = 2 tabs/24 hrs PO venlafaxine ER 37.5 mg PO DAILY Zepbound (tirzepatide (weight loss)) 7.5 mg (0.5 mL) subcut QWEEK NS Tobacco use date assessed: 08/17/25 Dental Screening Dental Screen Date: 04/06/25 HPI Concern on Zepbound HPI Details Pt presents for f/u for weight loss. Pt lost 13 lb since April. She has been exercising 5 days a week for an hour decreasing caloric intake and tolerating Zepbound well. She is starting 7.5 mg dose this week. [facility] Medical History (Updated 08/17/25 @ 14:15 by Isabel Mcelroy MD) Back pain Annual physical exam Obesity Normal Pap smear Overweight Bipolar disorder with depression Migraine headache Surgical History Carpal tunnel syndrome Hx of cholecystectomy Family History Father Mental health disorder Substance use disorder Mother Mental health disorder Substance use disorder Uterine cancer Family/Other Diabetes mellitus Heart problem Paternal Aunt Leukemia Social History Housing: House Patient Tobacco Use Status: Never used Tobacco e-Cigarette/Vaping Use: Never Used service: No Current occupational status: employed Cognitive needs: No Hearing needs: No Vision needs: No Questionnaire PHQ-9 Over the last 2 weeks, how often have you been bothered by any of the following problems? 1. Little interest or pleasure in doing things: not at all 2. Feeling down, depressed, or hopeless: not at all 3. Trouble falling or staying asleep, or sleeping too much: not at all 4. Feeling tired or having little energy: several days 5. Poor appetite or overeating: nearly every day 6. Feeling bad about yourself - or that you are a failure or have let yourself or your family down: not at all 7. Trouble concentrating on things, such as reading the newspaper or watching television: several days 8. Moving or speaking so slowly that other people could have noticed. Or the opposite - being so fidgety or restless that you have been moving around a lot more than usual: not at all 9. Thoughts that you would be better off or of hurting yourself in some way: not at all Total score: 5 Depression Screening Interpretation: Negative Depression Screening Done: Yes Source: Developed by Drs. Tyler Aranda, Herlinda Mcclelland, Adarsh Be and colleagues, with an educational aury from [employer]. Thrive Questionnaire Date Thrive assessed: 03/30/25 I am a: Patient What is your living situation today?: I have a steady place to live Within the past 12 months, did the food you bought not last and you didn't have the money to get more?: Never true Within the past 12 months, did you worry whether your food would run out before you got money to buy more?: Never true Do you have trouble paying for medicines?: Yes Do you have trouble getting transportation to medical appointments?: No Do you have trouble paying your heating and electricity bill?: Yes Do you have trouble taking care of your child, family member or friend?: No Do you have trouble with day-to-day activities such as bathing, preparing meals, shopping, managing finances, etc.?: No Are you currently unemployed and looking for a job?: No Are you interested in more education?: No Currently or been in a relationship where the following occur: No concerns reported THRIVE Score: 1 JOSUE-7 AMB Questionnaire JOSUE-7 Date JOSUE - 7 assessed: 04/06/25 Feeling nervous, anxious, or on edge: 0 = Not at all Not being able to stop or control worryin = Not at all Worrying too much about different things: 0 = Not at all Trouble relaxin = Not at all Being so restless that it is hard to sit still: 0 = Not at all Becoming easily annoyed or irritable: 1 = Several days Feeling afraid as if something awful might happen: 0 = Not at all Total JOSUE-7 score (0-4 normal; 5-9 mild; 10-14 moderate; 15-21 severe): 1 Source: Developed by Drs. Tyler Aranda, Herlinda Mcclelland, Adarsh Be and colleagues, with an educational aury from [employer]. Review of Systems Const All systems reviewed & are unremarkable except as noted in HPI and below ENT Reports no additional complaints Card Reports no additional complaints Resp Reports no additional complaints GI Reports no additional complaints Reports no additional complaints Physical exam (Primary Care) Vital Signs: Last Vital Signs Temp 98.4 F 08/17/25 13:32 Pulse 95 08/17/25 13:32 Resp 18 08/17/25 13:32 BP 110/76 08/17/25 13:32 Pulse Ox 99 08/17/25 13:32 Oxygen Delivery Method Room Air 08/17/25 13:32 BMI result Body Mass Index 46.5 Tobacco/Smoking Status: Tobacco use Status Tobacco use date assessed 08/17/25 08/17/25 13:36 Patient Tobacco Use Status Never used Tobacco 08/17/25 13:36 e-Cigarette/Vaping Use Never Used 08/17/25 13:24 PHQ-9: PHQ-9 Score PHQ-9: Total score 5 08/17/25 13:36 Depression Screening Interpretation: Negative Thrive Assessment: Date of Thrive Assessment Date Thrive assessed 03/30/25 08/17/25 13:24 Currently or been in a relationship where the following occur: No concerns reported Const General: no acute distress Resp Effort & Inspection: normal respiratory effort Auscultation: clear to auscultation bilaterally Cardio Rhythm: regular rhythm Heart sounds: S1 normal heart sound present and S2 normal heart sound present GI Inspection: Yes normal to inspection Palpation (GI): Soft to palpation Coding Level of Care Code Est Pt Level 3 (62427) Diagnoses Obesity E66.9 Assessment & Plan Assessment & Plan (1) Obesity: Comment: BMI 45.7, lost 12 lbs from 04/25-08/25 on Zepbound Code(s): E66.9 - Obesity, unspecified Category: Medical Plan: Patient will start 7.5 mg of Zepbound this week. She will continue regular physical activity and decreasing caloric intake. She will follow-up in 3 months dose will be adjusted after month if needed Orders: Orders Basic Metabolic Panel Today Z00.00 - Encounter for general adult medical examination without abnormal findings UA w Microscopic Today Z00.00 - Encounter for general adult medical examination without abnormal findings
[2025-08-17 13:32] VITALS: BP 110/76; PULSE 95; RESP 18; TEMP 36.9; O2SAT 99; BMI 46.5
== END 2025-08-17 13:59 | disposition home or self-care (01) ==
LOC: HO.HMCC 13:24
PROVIDERS: PCP Internal Medicine; Visit Provider Internal Medicine
DX: E66.9 Obesity, unspecified (principal); Z68.42 Body mass index [BMI] 45.0-49.9, adult